=== PATIENT | male | born 1985 | race African-American/Black ===

== ENCOUNTER 2017-11-10 20:22 | Emergency (ER) | payer OTHER ==
[~2017-11-10] VITALS: Ht 172.7 cm; Wt 75.9 kg
[2017-11-10 22:30] VITALS: BP 126/79
== END 2017-11-10 22:53 | disposition home or self-care (01) ==
LOC: EMS 20:24
DX: R20.0 Anesthesia of skin (principal); F41.9 Anxiety disorder, unspecified
CPT/HCPCS: 99283